=== PATIENT | female | born 1995 | race Caucasian/White ===

== ENCOUNTER 2017-10-03 11:52 | Emergency (ER) | payer SELFPAY ==
[2017-10-03] MEDS ORDERED: Adacel (T-DAP) 0.5 ML VIAL ONE (12:35)
[2017-10-03 13:13] LABS: Bilirubin Negative (Negative); Blood, Urine Negative (Negative); Clarity CLEAR (Clear); Glucose, Urine (Dipstick) Negative (Negative); Leukocyte Negative (Negative); Nitrite Negative (Negative); Protein, Urine (Dipstick) Negative (Neg-Trace); Specific Gravity, Urine 1.024 (1.002-1.036); pH, Urine 6.5 (5.0-9.0)
[2017-10-03 13:20] LABS: Pregnancy Test - Urine (BHCG) Negative (Negative); Pregu Control Background? CLEAR/WHITE (CLR/WHITE); Pregu Control Bar Appear? YES (CONTROL BAR); Specific Gravity 1.024 (1.002-1.036)
--- NOTE | 2017-10-03 13:21 | RAD ---
RIGHT KNEE FOUR VIEWS: INDICATIONS: Fall with right knee pain. FINDINGS: No acute fracture or subluxation is evident. The examination does not appear appreciably changed fro m comparison in April 2014. IMPRESSION: No acute osseous abnormality. POS: CADY
[2017-10-03] MEDS ORDERED: Ketorolac Tromethamine 30 MG/ML VIAL ONE (13:45)
== END 2017-10-03 14:05 | disposition home or self-care (01) ==
LOC: ERS 11:52
DX: S80.212A Abrasion, left knee, initial encounter (principal); S80.211A Abrasion, right knee, initial encounter; F41.9 Anxiety disorder, unspecified; F32.9 Major depressive disorder, single episode, unspecified; W17.89XA Other fall from one level to another, initial encounter
CPT/HCPCS: 81003; 81025; 90471; 90715; 96372; 99284; J1885

== ENCOUNTER 2018-03-21 10:34 | Emergency (ER) | payer SELFPAY ==
[2018-03-21 11:05] LABS: #Eosinphils 0.1 thou/uL (0.0-0.7); #Lymphocytes 2.2 thou/uL (1.20-3.40); #Monocytes 0.3 thou/uL (0.11-0.59); #Neutrophils 6.1 thou/uL (1.40-6.50); %Basophils 0.5 % (0.0-1.0); %Eosinophils 1.5 % (0.0-10.0); %Lymphocytes 25.5 % (21.0-51.0); %Monocytes 3.1 % (0.0-10.0); %Neutrophils 69.4 % (42.0-75.0); Hemoglobin 13.4 g/dL (12.0-16.0); Mean Corpuscular HGB CONC 34.8 g/dL (32.0-36.0); Mean Corpuscular Hemoglobin 29.9 pg (27.0-31.0); Mean Corpuscular Volume 85.9 fL (78.0-98.0); Mean Platelet Volume 6.7 fL (7.4-10.4); Platelet Count 356 thou/uL (130-400); RBC Distribution Width 12.5 % (11.5-14.5); Red Blood Cell (RBC) Count 4.48 mill/uL (4.20-5.40); White Blood Cell (WBC) Count 8.8 thou/uL (4.8-10.8)
[2018-03-21 12:24] LABS: Bilirubin Negative (Negative); Blood, Urine Moderate (Negative); Clarity CLEAR (Clear); Glucose, Urine (Dipstick) Negative (Negative); Leukocyte Negative (Negative); Nitrite Negative (Negative); Protein, Urine (Dipstick) Negative (Neg-Trace); Specific Gravity, Urine 1.025 (1.002-1.036); Urobilinogen 0.2 mg/dL (0.2-1.0)
[2018-03-21 12:26] LABS: Bacteria/HPF None Seen HPF (None Seen); Hyaline Casts/LPF 0-3 HYALINE CAST LPF (0-3 Hyaline); Pathc Cast-AUWi Flag 0.14 (0-2.49); RBC/HPF 0-3 HPF (0-3); Squamous Epithelial 0-3 HPF (0-3); WBC/HPF 0-3 HPF (0-3)
[2018-03-21] MEDS ORDERED: Metoclopramide HCl 10 MG TAB ONE (12:38)
--- NOTE | 2018-03-21 13:12 | ULT ---
PELVIC ULTRASOUND: Technique: Transabdominal and endovaginal ultrasound of the pelvis performed. History: with vaginal bleeding. FINDINGS: Uterine size is mildly prominent measuring 10.0 x 5.7 x 6.6 cm. There is fluid and echogenicity in the endometrial cavity. Endometrial stripe is upper normal measure d at 8-10 mm. There is no evidence of gestational sac. pole is not identified. Both ovaries are identified and appear unremarkable. Color doppler with spectral analysis demonstrate s blood flow to both ovaries. IMPRESSION: No evidence of intrauterine gestation identified. There is echogenicity and blood/fluid in the endome trial cavity. Mild prominent endometrial stripe. Findings could represent changes from recent spontan eous AB. Retained products of gestation cannot be excluded. Follow up recommended. POS: CADY
== END 2018-03-21 12:40 | disposition home or self-care (01) ==
LOC: ERS 10:34
DX: O03.9 Complete or unspecified spontaneous abortion without complication (principal); F41.9 Anxiety disorder, unspecified; F32.9 Major depressive disorder, single episode, unspecified
CPT/HCPCS: 36415; 76856; 81003; 81015; 84702; 85025; 86900; 86901

== ENCOUNTER 2021-08-01 13:41 | Emergency (ER) | payer SELFPAY | END 2021-08-01 15:52 | disposition home or self-care (01) | LOC: ERS 13:41 | DX: M25.561 Pain in right knee (principal) ==